=== PATIENT | male | born 1955 | race Caucasian/White ===

== ENCOUNTER 2019-04-29 10:26 | Emergency (ER) | payer BC ==
[2019-04-29 11:35] LABS: Hemoglobin 16.1 g/dL (14.0-18.0); Mean Corpuscular Hemoglobin 33.4 pg (27.0-31.0); Platelet Count 215 thou/uL (130-400); RBC Distribution Width 11.9 % (11.5-14.5); Red Blood Cell (RBC) Count 4.83 mill/uL (4.70-6.10); White Blood Cell (WBC) Count 14.7 thou/uL (4.8-10.8)
[2019-04-29 11:52] LABS: Band 8 % (5-11); Lymphocytes 7 % (21-51); MDiff Complete? YES; Monocytes 1 % (0-10); Neutrophil 82 % (42-75); RBC Morphology Normal; Reactive Lymphocytes 2 % (0-10)
[2019-04-29 13:51] LABS: Potassium 4.4 mmol/L (3.5-5.1); Sodium 142 mmol/L (136-145)
[2019-04-29 13:52] LABS: Anion Gap 10 mmol/L (10-20); BUN (Urea Nitrogen) 26 mg/dL (8.4-25.7); Calc. Creatinine Clearance 0 mL/min (70-130); Carbon Dioxide 28 mmol/L (23-31); Chloride 108 mmol/L (98-107); Estimated GFR-MDRD 64
[2019-04-29 13:53] LABS: Albumin 3.9 g/dL (3.4-4.8); Alkaline Phosphatase 73 U/L (40-110); Bilirubin, Total 0.5 mg/dL (0.2-1.2); Calcium 8.9 mg/dL (7.8-10.44); Globulin 2.2 g/dL (2.4-3.5); Protein, Total 6.1 g/dL (5.8-8.1)
[2019-04-29 13:54] LABS: ALT (SGPT) 23 U/L (8-55); AST (SGOT) 17 U/L (5-34)
[2019-04-29 13:55] LABS: Glucose 239 mg/dL (80-115)
== END 2019-04-29 14:30 | disposition home or self-care (01) ==
LOC: ERS 10:26
DX: E11.649 Type 2 diabetes mellitus with hypoglycemia without coma (principal); F17.210 Nicotine dependence, cigarettes, uncomplicated; Z79.4 Long term (current) use of insulin
CPT/HCPCS: 36415; 36416; 80053; 85025; 93005

== ENCOUNTER 2020-09-13 10:44 | Outpatient (CLI) | payer BC | END 2020-09-13 10:45 | disposition home or self-care (01) | LOC: BICRAD 10:44 | PROVIDERS: ATTEND Specialist | DX: S89.92XA Unspecified injury of left lower leg, initial encounter (principal); M25.462 Effusion, left knee; I70.90 Unspecified atherosclerosis ==

== ENCOUNTER 2020-09-27 12:46 | Outpatient (CLI) | payer BC | END 2020-09-27 12:47 | disposition home or self-care (01) | LOC: MRI 12:46 | DX: I73.9 Peripheral vascular disease, unspecified (principal); I70.8 Atherosclerosis of other arteries | CPT/HCPCS: 74185; 82565; C8900; C8912 ==

== ENCOUNTER 2020-10-26 12:09 | Outpatient (CLI) | payer BC | END 2020-10-26 12:10 | disposition home or self-care (01) | LOC: BICRAD 12:09 | PROVIDERS: ATTEND Specialist | DX: M25.511 Pain in right shoulder (principal) ==